=== PATIENT | male | born 1995 | race Caucasian/White ===

== ENCOUNTER 2016-12-19 21:26 | Emergency (ER) | payer OTHER ==
[2016-12-19] MEDS ORDERED: LORazepam 2 MG/ML SDV VIAL ONE (21:33)
[2016-12-19] MEDS ORDERED: LORAZEPAM CARPU-JECT 2 MG/ML DISP.SYRIN IVPUSH ONE (21:48)
[2016-12-19 21:49] VITALS: BP 136/89; PULSE 115; TEMP 97.7; BMI 19.5
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
--- NOTE | 2016-12-19 23:00 | PDOC ---
Attending Attestation - Resident Resident Name: Anam Orellana - HPI HPI: 12/19/16 23:00 Pt presents to the ED after brought in by EMS for shortness of breath. Reports "shaking" while standing up. Had an episode of shaking movements in the ED-- patient was following commands in the ED during this episode. - Physicial Exam PE: 12/19/16 23:02 Patient is now alert and oriented x 3 and neurologically intact. - Medical Decision Making 12/19/16 23:03 Pt presents to the ED with shortness of breath that has now resolved. Also had shaking movements that do not appear to have been seizures. Will check labs and reassess--likely discharge home.
[2016-12-19 23:49] LABS: BASOPHIL 0.4 % (0-2.0); EOSINOPHIL 1.1 % (0-4.5); MCH 31.6 pg (25.7-33.7); MCHC 33.1 g/dl (32.0-35.9); MEAN CELL VOLUME 95.3 fl (80-96); MEAN PLT VOLUME 9.8 fl (7.5-11.1); NEUTROPHILS 54.8 % (42.8-82.8); PLATELET COUNT 261 K/MM3 (134-434); RDW 13.8 % (11.9-15.9); WHITE BLOOD COUNT 7.7 K/mm3 (4.0-10.0)
[2016-12-20 00:58] LABS: ALBUMIN 4.4 g/dl (3.4-5.0); ALK PHOS 122 U/L (45-117); ANION GAP 21 (8-16); BILIRUBIN,TOTAL 0.7 mg/dL (0.2-1.0); CALCIUM 9.2 mg/dL (8.5-10.1); CO2 18 mmol/L (21-32); GLUCOSE,RANDOM 85 mg/dL (74-106); SGPT/ALT 22 U/L (12-78); TOT PROT 7.7 g/dl (6.4-8.2)
[2016-12-20 01:03] LABS: SGOT/AST 30 U/L (15-37)
== END 2016-12-20 01:58 | disposition home or self-care (01) ==
LOC: JER 21:26
PROC: 3E033NZ Introduction of Analgesics, Hypnotics, Sedatives into Peripheral Vein, Percutaneous Approach (ICD-10-PCS; principal; 2016-12-19)
DX: R56.9 Unspecified convulsions (principal); F10.10 Alcohol abuse, uncomplicated
CPT/HCPCS: 36415; 80053; 83605; 85025; 99282-25

== ENCOUNTER 2017-01-31 19:59 | Emergency (ER) | payer OTHER ==
[2017-01-31 20:31] VITALS: BMI 19.5
[2017-01-31] MEDS ORDERED: METOCLOPRAMIDE HCL INJECTION 10 MG/2 ML VIAL IVPB ONE (21:40)
[2017-01-31] MEDS ORDERED: METOCLOPRAMIDE HCL INJECTION 10 MG/2 ML VIAL ONE (21:45)
[2017-01-31 21:49] LABS: BASOPHIL 0.4 % (0-2.0); EOSINOPHIL 1.4 % (0-4.5); MCH 31.8 pg (25.7-33.7); MCHC 34.4 g/dl (32.0-35.9); MEAN CELL VOLUME 92.4 fl (80-96); MEAN PLT VOLUME 9.1 fl (7.5-11.1); PLATELET COUNT 205 K/MM3 (134-434); RDW 13.2 % (11.9-15.9); WHITE BLOOD COUNT 7.5 K/mm3 (4.0-10.0)
[2017-01-31 22:09] LABS: ALBUMIN 3.8 g/dl (3.4-5.0); ANION GAP 9 (8-16); BILIRUBIN,TOTAL 0.7 mg/dL (0.2-1.0); CALCIUM 8.5 mg/dL (8.5-10.1); CO2 27 mmol/L (21-32); CREATININE 0.9 mg/dL (0.7-1.3); GLUCOSE,RANDOM 82 mg/dL (74-106); SGOT/AST 15 U/L (15-37); SGPT/ALT 18 U/L (12-78); TOT PROT 6.8 g/dl (6.4-8.2)
[2017-01-31 22:11] LABS: ALK PHOS 101 U/L (45-117); CPK 99 IU/L (39-308); TROPONIN I < 0.02 ng/ml (0.00-0.05)
[2017-01-31 22:16] VITALS: BP 114/81; PULSE 60
--- NOTE | 2017-01-31 22:24 | PDOC ---
History of Present Illness - General Chief Complaint: Seizure Stated Complaint: PAIN, ACUTE Time Seen by Provider: 01/31/17 21:15 History Source: Patient - History of Present Illness Initial Comments: 01/31/17 22:19 Patient is a 21M with history of migraines, seizures, gastritis, gastric ulcer currently under investigation for suspicion of cancer, seizures and asthma here today complaining of headache and possible seizure. He describes a headache that is worse in both temples of gradual onset worsening over the past 24 hours with associated nausea, light sensitivity and sound sensitivity. He also says that he had seizure today a couple of hours ago, witnessed by a friend. He says that he doesn't remember any of the events and is unsure of what happened. His friend is not at the bedside to give additional information. He says that he's had two or three prior seizures, but wasn't given anything for it yet. He has an appointment on Feb 20. 01/31/17 23:55 Patient's friend at bedside. Described the patient as losing consciousness, falling, and tonic-clonic movements in all four extremities. Past History - Past Medical History Allergies/Adverse Reactions: Allergies Allergy/AdvReac Type Severity Reaction Status Date / Time ketorolac tromethamine AdvReac PALPITATION Verified 12/19/16 21:47 [From Toradol] S Home Medications: Ambulatory Orders Albuterol Sulfate Inhaler - [Ventolin Hfa Inhaler -] 1 - 2 inh PO Q4H 04/06/16 Anemia: No Asthma: Yes Cardiac Disorders: No CVA: No COPD: No DVT: No Dementia: No Diabetes: No Dialysis: No GI Disorders: Yes (gastritis, ulcers) Disorders: No HTN: No Hypercholesterolemia: No HIV: No Kidney Stones: No Liver Disease: No Psychiatric Problems: No Seizures: Yes Thyroid Disease: No Lung CA: No - Surgical History Abdominal Surgery: No Appendectomy: Yes Cardiac Surgery: No Cholecystectomy: No Gastric Stapling: No GI Surgery: No Lung Surgery: No Neurologic Surgery: No - Immunization History Immunization Up to Date: Yes - Psycho/Social/Smoking Cessation Hx Anxiety: No Suicidal Ideation: No Smoking Status: No Smoking History: Never smoked Have you smoked in the past 12 months: No Number of Cigarettes Smoked Daily: 0 Information on smoking cessation initiated: No Hx Alcohol Use: No Drug/Substance Use Hx: No Substance Use Type: None Review of Systems - Review of Systems Comments:: 01/31/17 22:25 GENERAL/CONSTITUTIONAL: No fever or chills. No weakness. HEAD, EYES, EARS, NOSE AND THROAT: No change in vision. No sore throat. CARDIOVASCULAR: No chest pain or shortness of breath RESPIRATORY: No cough, wheezing, or hemoptysis. GASTROINTESTINAL: Positive for nausea. Negative for vomiting, diarrhea or constipation. GENITOURINARY: No dysuria, frequency, or change in urination. SKIN: No rash NEUROLOGIC: Positive for headache. Negative for loss of consciousness, or change in strength/sensation. ALLERGIC/IMMUNOLOGIC: No hives or skin allergy. *Physical Exam - Vital Signs Last Vital Signs Temp Pulse Resp BP Pulse Ox 60 18 114/81 100 01/31/17 21:30 01/31/17 21:30 01/31/17 21:30 01/31/17 21:30 - Physical Exam Comments: 01/31/17 22:27 GENERAL: Awake, alert, and fully oriented, in no acute distress HEAD: No signs of trauma, normocephalic, atraumatic EYES: PERRLA, EOMI, sclera anicteric, conjunctiva clear ENT: Auricles normal inspection, hearing grossly normal, nares patent, oropharynx clear without exudates. Moist mucosa LUNGS: No distress, speaks full sentences, clear to auscultation bilaterally HEART: Regular rate and rhythm, normal S1 and S2, no murmurs, rubs or gallops, peripheral pulses normal and equal bilaterally. ABDOMEN: Soft, nontender, normoactive bowel sounds. No guarding, no rebound. No masses EXTREMITIES: Normal inspection, Normal range of motion, no edema. No clubbing or cyanosis. NEUROLOGICAL: Cranial nerves II through XII grossly intact. Normal speech, no focal sensorimotor deficits SKIN: Warm, Dry, normal turgor, no rashes or lesions noted. ED Treatment Course - LABORATORY CBC & Chemistry Diagram: 01/31/17 21:43 01/31/17 21:43 - ADDITIONAL ORDERS Additional order review: Laboratory Results 01/31/17 21:43 Sodium 142 Potassium 4.0 Chloride 106 Carbon Dioxide 27 D Anion Gap 9 BUN 9 D Creatinine 0.9 Creat Clearance w eGFR > 60 Random Glucose 82 Calcium 8.5 Total Bilirubin 0.7 AST 15 D ALT 18 Alkaline Phosphatase 101 Creatine Kinase 99 Troponin I < 0.02 Total Protein 6.8 Albumin 3.8 01/31/17 21:43 RBC 4.81 MCV 92.4 MCHC 34.4 RDW 13.2 MPV 9.1 Neutrophils % 53.0 Lymphocytes % 36.2 Monocytes % 9.0 Eosinophils % 1.4 Basophils % 0.4 - RADIOLOGY Radiology Studies Ordered: Category Date Time Status HEAD CT WITHOUT CONTRAST [CT] Stat CT Scan 01/31/17 21:27 Ordered CHEST X-RAY PORTABLE* [RAD] Stat Radiology 01/31/17 21:26 Ordered - Medications Given in the ED: ED Medications Discontinued Medications Generic Name Dose Route Start Last Admin Trade Name Freq PRN Reason Stop Dose Admin Metoclopramide HCl 10 mg 01/31/17 21:40 01/31/17 21:52 Reglan Injection - IVPB 01/31/17 21:41 10 mg ONCE ONE Administration Medical Decision Making - Medical Decision Making 01/31/17 22:28 Patient is 21M with history of seizures, migraines, gastric ulcer and gastritis here today complaining of headache and possible seizure. Vital signs stable and normal. Differential is broad, and includes, but is not limited to: syncope, seizure, migraine, intracranial mass. Will evaluate with labs and CT head. 01/31/17 23:16 CBC/CMP normal. CT shows no acute intracranial pathology. CXR shows no acute cardiopulmonary process. 01/31/17 23:37 Trop neg, CK normal. 02/01/17 06:24 Patient signed out AMA. Back at neuro baseline both to him and his friend. *DC/Admit/Observation/Transfer Diagnosis at time of Disposition: Seizure - Discharge Dispostion Disposition: AGAINST MEDICAL ADVICE Condition at time of disposition: Stable - Referrals Referrals: Tiffanie Nice [Primary Care Provider] - - Post Discharge Activity Work/School Note: Back to Work
--- NOTE | 2017-01-31 22:40 | PDOC ---
Attending Attestation - Resident Resident Name: Daniel Jenkins - HPI HPI: 01/31/17 22:39 Pt comes with LOC and possible seizure activity witnessed by a friend, while they were walking to their car. Pt has had a seizure episode once in the past, and he followed in ER, was sent back to PMD and referred to neuro. He has not seen a neurologist yet. - Physicial Exam PE: 02/01/17 00:34 Agree with resident exam. Pt's exam in the ER is normal. He states that he doesn't recall anything that happened. Labs normal UTOX pending. CT head appears normal. CXR is clear. Pt will be admitted to the hospitalist observation so that he may be worked up for syncope seizure and for neuro evaluation. - Medical Decision Making 02/01/17 01:48 Pt should be admitted for syncope/seizure that was witnessed by boyfriend. Pt was presented to the hospitalist team for admission. When they arrived, pt refuses to stay; states he wants to go home and follow as an outpatient. He will be signed out AMA.
[2017-02-01 00:28] LABS: URINE APPEARANCE CLEAR; URINE BILIRUBIN NEGATIVE (NEGATIVE); URINE BLOOD NEGATIVE (NEGATIVE); URINE COLOR YELLOW; URINE GLUCOSE (UA) NEGATIVE (NEGATIVE); URINE KETONE NEGATIVE (NEGATIVE); URINE LEUK ESTERASE NEGATIVE (NEGATIVE); URINE NITRITE NEGATIVE (NEGATIVE); URINE PROTEIN NEGATIVE (NEGATIVE); URINE UROBILINOGEN NEGATIVE mg/dL (0.2-1.0)
[2017-02-01 00:39] LABS: URINE MARIJUANA THC NEGATIVE ng/ml (CUTOFF=50)
[2017-02-01] MEDS ORDERED: METOCLOPRAMIDE HCL INJECTION 10 MG/2 ML VIAL IVPB PRN (01:28)
--- NOTE | 2017-02-01 09:21 | EKG ---
Test Reason : Blood Pressure : / mmHG Vent. Rate : 053 BPM Atrial Rate : 053 BPM P-R Int : 146 ms QRS Dur : 094 ms QT Int : 404 ms P-R-T Axes : 081 063 061 degrees QTc Int : 379 ms SINUS BRADYCARDIA OTHERWISE NORMAL ECG WHEN COMPARED WITH ECG OF 09-JAN-2015 10:43, NO SIGNIFICANT CHANGE WAS FOUND Confirmed by MD MYRON, ANDREA ([id number]) on 02/01/2017 9:21:43 AM Referred By: Confirmed By:ANDREA SANCHES MD
== END 2017-02-01 02:10 | disposition left against medical advice (07) ==
LOC: JER 19:59
PROC: 3E033GC Introduction of Other Therapeutic Substance into Peripheral Vein, Percutaneous Approach (ICD-10-PCS; principal; 2017-01-31)
DX: G40.909 Epilepsy, unspecified, not intractable, without status epilepticus (principal); G43.909 Migraine, unspecified, not intractable, without status migrainosus; J45.909 Unspecified asthma, uncomplicated
CPT/HCPCS: 36415; 70450-TC; 71010-TC; 80053; 80307; 81003; 84484; 85025; 93005; 93010; 99285-25

== ENCOUNTER 2017-09-13 18:11 | Emergency (ER) | payer OTHER ==
[2017-09-13 18:16] VITALS: TEMP 97; BMI 19.5
[2017-09-13] MEDS ORDERED: morphine CARPU-JECT 4 MG/1 ML DISP.SYRIN IVPUSH ONE (18:46)
--- NOTE | 2017-09-13 18:50 | PDOC ---
History of Present Illness - General Chief Complaint: Injury Stated Complaint: FALL/INJURY History Source: Patient, Friend Exam Limitations: No Limitations - History of Present Illness Initial Comments: 09/13/17 18:50 Pt is a 22 Yo M with PMHx of epilepsy, asthma, presenting with pain R shoulder after a fall on the R side at 4pm today. Pt had a mechanical fall after he slipped on a shirt he was folding on tiled floor in his room. Pain is 10/10 cramping pain worse with movement of R shoulder and and R clavicle. Patient has not used any pain medication prior to arrival. The fall was witnessed, he did not hit his head, no loss of consciousness or seizures, no bowel or bladder incontinence. No parasthesias or bleeding, no headaches. No alcohol or drug use prior. 09/13/17 18:56 Timing/Duration: getting worse Associated Symptoms: denies: chest pain, cough, diaphoresis, fever/chills Past History - Travel Traveled outside of the country in the last 30 days: No Close contact w/someone who was outside of country & ill: No - Past Medical History Allergies/Adverse Reactions: Allergies Allergy/AdvReac Type Severity Reaction Status Date / Time ketorolac tromethamine AdvReac PALPITATION Verified 09/13/17 18:16 [From Toradol] S Home Medications: Ambulatory Orders Albuterol Sulfate Inhaler - [Ventolin Hfa Inhaler -] 1 - 2 inh PO Q4H 04/06/16 Ibuprofen 600 mg PO TID PRN #15 tablet 09/13/17 Levetiracetam [Keppra] 0 mg PO DAILY 09/13/17 Anemia: No Asthma: Yes Cardiac Disorders: No CVA: No COPD: No DVT: No Dementia: No Diabetes: No Dialysis: No GI Disorders: Yes (gastritis, ulcers) Disorders: No HTN: No Hypercholesterolemia: No Kidney Stones: No Liver Disease: No Psychiatric Problems: No Seizures: Yes (on keppra) Thyroid Disease: No Lung CA: No - Surgical History Abdominal Surgery: No Appendectomy: Yes Cardiac Surgery: No Cholecystectomy: No Gastric Stapling: No GI Surgery: No Lung Surgery: No Neurologic Surgery: No - Immunization History Immunization Up to Date: Yes - Suicide/Smoking/Psychosocial Hx Smoking Status: No Smoking History: Current every day smoker Have you smoked in the past 12 months: No Number of Cigarettes Smoked Daily: 1 Information on smoking cessation initiated: No Hx Alcohol Use: No Drug/Substance Use Hx: No Substance Use Type: None Review of Systems - Review of Systems Able to Perform ROS?: Yes Is the patient limited [place] proficient: No Constitutional: No: Chills, Diaphoresis, Fever, Loss of Appetite, Weakness HEENTM: No: Blurred Vision, Nose Congestion Respiratory: No: Cough, Orthopnea, Shortness of Breath, Stridor, Wheezing Cardiac (ROS): No: Chest Pain, Chest Tightness ABD/GI: No: Abdominal Distended, Poor Appetite : No: Burning, Dysuria Musculoskeletal: Yes: Joint Pain (shoulder and clavicular pain) Neurological: No: Headache, Numbness, Paresthesia, Pre-Existing Deficit, Seizure , Unsteady Gait, Ataxia, Dizziness Hematologic/Lymphatic: No: Anemia, Easy Bleeding *Physical Exam - Vital Signs Last Vital Signs Temp Pulse Resp BP Pulse Ox 97 F L 73 18 124/74 98 09/13/17 18:13 09/13/17 18:13 09/13/17 18:13 09/13/17 18:13 09/13/17 18:13 - Physical Exam General Appearance: Yes: Appropriately Dressed, Mild Distress HEENT: positive: EOMI, SAM Neck: positive: Supple Respiratory/Chest: positive: Lungs Clear, Normal Breath Sounds. negative: Labored Respiration, Stridor, Wheezing Cardiovascular: positive: Regular Rhythm, Regular Rate, S1, S2. negative: Tachycardia Gastrointestinal/Abdominal: positive: Normal Bowel Sounds, Flat Musculoskeletal: positive: Decreased Range of Motion (R shoulder, swollen R clavicular area) Extremity: positive: Normal Capillary Refill Neurologic: positive: Fully Oriented, Alert, Normal Mood/Affect. negative: EOM Palsy, Facial Droop, Numbness, Sensory Deficit, Confused, Disoriented Medical Decision Making - Medical Decision Making 09/13/17 19:08 Patient given percocet since allergic to toradol said his heart stopped after he got toradol. CXR done and R shoulder Xray. R Shoulder sling applied. Patient signed out to Night team *DC/Admit/Observation/Transfer Diagnosis at time of Disposition: Clavicular fracture - Discharge Dispostion Disposition: HOME Condition at time of disposition: Good - Prescriptions Prescriptions: Ibuprofen 600 mg PO TID PRN #15 tablet PRN Reason: Pain - Referrals Referrals: Rober Shepard MD [Staff Physician] - Rosario Hernandez [Primary Care Provider] - - Patient Instructions Printed Discharge Instructions: How to Prevent Falls Additional Instructions: An x-ray showed a fracture of your collar bone. You can take Motrin (600 mg) up to three time daily and alternate with Tylenol for pain. Follow up with orthopedic surgery in the next 48 hours. Return to the Emergency Department for any new/worsening/concerning symptoms. - Post Discharge Activity Forms/Work/School Notes: Back to Work
--- NOTE | 2017-09-13 18:50 | PDOC ---
Attending Attestation - [facility] HPI: 09/13/17 18:50 The patient is a 22 year old male, with a significant past medical history of asthma, gastritis, gastric ulcer, and epilepsy, who presents to the emergency department 2 hours s/p mechanical fall with, pain to the right shoulder and clavicle. As per patient, he was folding laundry when she slipped on a piece of clothing and fell on his right side. He reports not feeling pain initially until he laid down. Secondary to his pain he reports swelling around his right sided clavicle and pain while upon inspiration. He denies hitting his head. He denies any loss of consciousness. He denies any recent fevers, chills, headache or dizziness. He denies any recent nausea, vomit , diarrhea or constipation. He denies any recent chest pain or shortness of breath. He denies any recent dysuria, frequency, urgency or hematuria. Allergies: Toradol. Past surgical history: None reported. Social History: Nonsmoker. Denies EtOH use and recreational drug use. Primary Care Physician: Dr. Rosario Hernandez <Henry England - Last Filed: 09/13/17 18:50> - Resident Resident Name: Laura Ochoa I - HPI HPI: 09/13/17 18:42 - Physicial Exam PE: 09/13/17 18:44 V/s 97-73-18 b/p 124/74 HEENT: nc/at ,angela, eomi, Tm nl bilaterally Neck: supple Lungs: + bs deb cta Heart:S1S2 regular abd: +bs abd soft no guarding or tenderness Ext: pt with obvious deformity to rt clavicle , pt with nl pulses and nl sensation, pt is neurovascularly intact Neuro : alert and oriented x3, no focal deficits 09/13/17 18:53 - Medical Decision Making 09/13/17 18:53 I, Dr. Keyonna Patel, attest that the scribes documentation that appears above has been prepared under my direction and personally reviewed by me. I confirmed that the note above accurately reflects all work, treatment, procedures, and medical decision-making performed by me. 09/13/17 18:56 Pt says he fell about 3 hrs ago and did not think anything of the fall until he went to lay down and the pain was severe and he noted rt side chest wall swelling. 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 Plan: pt did not take any thing for pain, pt with room air sat of 98%, percet ordered for pain along with sling, chest xray, clavicle xray and rt shoulder xray. Case endorsed to oncoming shift to f/u xrays and make final disposition. Pt in stable condition at time of this note. <Keyonna Patel - Last Filed: 09/13/17 19:04> Attestations - Attestations 09/13/17 18:50 Documentation prepared by Henry England, acting as medical care administrator for Keyonna Patel MD. <Henry England - Last Filed: 09/13/17 18:50>
[2017-09-13] MEDS ORDERED: IBUPROFEN 600 MG TABLET (FP) PO ONE ×2 (19:33→19:36)
--- NOTE | 2017-09-13 19:36 | PDOC ---
*Physical Exam - Vital Signs Last Vital Signs Temp Pulse Resp BP Pulse Ox 97 F L 73 18 124/74 100 09/13/17 18:13 09/13/17 18:13 09/13/17 18:13 09/13/17 18:13 09/13/17 18:57 - Physical Exam General Appearance: Yes: Nourished, Appropriately Dressed HEENT: positive: EOMI, SAM Neck: positive: Trachea midline, Supple Respiratory/Chest: positive: Lungs Clear Cardiovascular: positive: S1, S2 Musculoskeletal: positive: Other (L anterior wall chest TTP, L medial clavicular TTP) <Yoli Velasquez - Last Filed: 09/13/17 19:57> - Vital Signs Last Vital Signs Temp Pulse Resp BP Pulse Ox 97 F L 82 17 108/77 98 09/13/17 18:13 09/13/17 19:53 09/13/17 19:53 09/13/17 19:53 09/13/17 19:53 <Sarai Carrillo - Last Filed: 09/14/17 05:50> ED Treatment Course - Medications Given in the ED: ED Medications Discontinued Medications Generic Name Dose Route Start Last Admin Trade Name Freq PRN Reason Stop Dose Admin Oxycodone/Acetaminophen 1 combo 09/13/17 18:48 09/13/17 18:52 Percocet 5/325 - PO 09/13/17 18:49 1 combo ONCE ONE Administration <Yoli Velasquez - Last Filed: 09/13/17 19:57> - Medications Given in the ED: ED Medications Discontinued Medications Generic Name Dose Route Start Last Admin Trade Name Freq PRN Reason Stop Dose Admin Ibuprofen 600 mg 09/13/17 19:33 09/13/17 19:38 Motrin - PO 09/13/17 19:34 600 mg ONCE ONE Administration Oxycodone/Acetaminophen 1 combo 09/13/17 18:48 09/13/17 18:52 Percocet 5/325 - PO 09/13/17 18:49 1 combo ONCE ONE Administration <Sarai Carrillo - Last Filed: 09/14/17 05:50> Medical Decision Making - Medical Decision Making 09/13/17 19:37 Patient signed out by Dr. Ochoa. 22 year old male presents after a mechanical fall in which he hit his LUE. XR shows medical clavicular fracture. Neurovasculary intact. Patient in sling, discharged home with ortho follow-up and Ibuprofen for pain control (Patient notes he has taken Ibuprofen on prior occasion without any allergic reaction). I discussed the physical exam findings, ancillary test results and final diagnoses with the patient. I answered all of the patient's questions. The patient was satisfied with the care received and felt comfortable with the discharge plan and treatment plan. The patient will return to the Emergency Department with any new, persistent or worsening symptoms. <Yoli Velasquez - Last Filed: 09/13/17 19:57> - Medical Decision Making 09/14/17 05:49 Pt has a fracture at the medial aspect of the clavicle. Home with sling and ortho followup. <Sarai Carrillo - Last Filed: 09/14/17 05:50> *DC/Admit/Observation/Transfer - Discharge Dispostion Admit: No <Yoli Velasquez - Last Filed: 09/13/17 19:57> <Sarai Carrillo - Last Filed: 09/14/17 05:50> Diagnosis at time of Disposition: Clavicular fracture - Discharge Dispostion Disposition: HOME Condition at time of disposition: Good - Prescriptions Prescriptions: Ibuprofen 600 mg PO TID PRN #15 tablet PRN Reason: Pain - Referrals Referrals: Rosario Hernandez [Primary Care Provider] - Rober Shepard MD [Staff Physician] - - Patient Instructions Printed Discharge Instructions: How to Prevent Falls Additional Instructions: An x-ray showed a fracture of your collar bone. You can take Motrin (600 mg) up to three time daily and alternate with Tylenol for pain. Follow up with orthopedic surgery in the next 48 hours. Return to the Emergency Department for any new/worsening/concerning symptoms. - Post Discharge Activity Forms/Work/School Notes: Back to Work ED Attending (Resident) HPI <Yoli Velasquez - Last Filed: 09/13/17 19:57> - General History Source: Patient Exam Limitations: No Limitations - History of Present Illness Modifying Factors: improves with: cold therapy, movement, rest Associated Symptoms: reports: chest pain - Attending Attestation I agree with resident's note.: Yes <Sarai Carrillo - Last Filed: 09/14/17 05:50> - General Chief Complaint: Injury Stated Complaint: FALL/INJURY; swelling of the clavicle Time Seen by Provider: 09/13/17 18:41
[2017-09-13 19:54] VITALS: BP 108/77; PULSE 82
== END 2017-09-13 19:54 | disposition home or self-care (01) ==
LOC: JER 18:11
DX: S42.009A Fracture of unspecified part of unspecified clavicle, initial encounter for closed fracture (principal); W01.0XXA Fall on same level from slipping, tripping and stumbling without subsequent striking against object, initial encounter; Y93.89 Activity, other specified; Y92.032 Bedroom in apartment as the place of occurrence of the external cause; G40.909 Epilepsy, unspecified, not intractable, without status epilepticus; J45.909 Unspecified asthma, uncomplicated; Z88.8 Allergy status to other drugs, medicaments and biological substances
CPT/HCPCS: 71045-TC-FY; 73030-TC-RT-FY; 99282-25

== ENCOUNTER 2017-11-14 17:39 | Emergency (ER) | payer OTHER ==
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
[2017-11-14 18:23] VITALS: BP 120/86; PULSE 105; TEMP 97.8; BMI 19.5
[2017-11-14] MEDS ORDERED: IBUPROFEN 600 MG TABLET (FP) PO ONE ×2 (18:39→18:41)
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
== END 2017-11-14 19:14 | disposition home or self-care (01) ==
LOC: JERFT 17:39
DX: S19.80XA Other specified injuries of unspecified part of neck, initial encounter (principal); V43.52XA Car driver injured in collision with other type car in traffic accident, initial encounter; Y92.414 Local residential or business street as the place of occurrence of the external cause; Y93.89 Activity, other specified; Y99.8 Other external cause status; Z88.8 Allergy status to other drugs, medicaments and biological substances; G40.909 Epilepsy, unspecified, not intractable, without status epilepticus; Z87.09 Personal history of other diseases of the respiratory system; Z87.19 Personal history of other diseases of the digestive system
CPT/HCPCS: 72050-TC-FY; 99281-25